=== PATIENT | female | born 1995 | race Caucasian/White ===

== ENCOUNTER 2018-01-30 06:18 | Emergency (ER) | payer OTHER ==
[2018-01-30] MEDS ORDERED: IBUP400T13 PO (06:25)
--- NOTE | 2018-01-30 06:30 | ER Report ---
History and Physical Time Seen By MD: 06:29 Hx. of Stated Complaint: upper right back pain. off and on. (KIRILL GARSIA MD) HPI/ROS CHIEF COMPLAINT: right flank and abdominal pain HISTORY OF PRESENT ILLNESS: This is a 22 year old female. She is having pain in right flank area and right upper abdomen. This happens intermittently for months now. It usually lasts a few hours when it comes on. She cannot really describe the quality of the pain. She feels in in her right flank area and around into the right upper quadrant. Sitting up helps and laying down tends to make it worse. Nothing else changes it. It does not change with eating, deep breaths, exertions, bowel movements or urination. She generally does not have vomiting, perhaps a little nausea, but not consistently. She has no diarrhea, constipation, blood or melena. No dysuria, frequency, or hematuria. Her next period will be due in about a week, normal menses last month. She has not been able to identify any type of pattern that causes the pain. She has no medical problems. She did just have a cold, but was mild, and this is not consistent with this pain. Last episode was 2 days ago, and several weeks prior to that. REVIEW OF SYSTEMS: Constitutional: No fever or chills. Eyes: No vision changes. ENT: As above. Cardiovascular: No chest pain. No palpitations. Respiratory: No cough. No shortness of breath. Gastrointestinal: As above. Genitourinary: As above. Musculoskeletal: No extremity pain. Skin: No rashes. Neurological: No weakness. No headache. (KIRILL GARSIA MD) Allergies: Coded Allergies: No Known Drug Allergies (Unverified , 01/30/18) Home Meds Active Scripts Ondansetron Hcl (ZOFRAN) 4 Mg Tablet, 4 MG PO Q8H Y for NAUSEA, #15 TAB 0 Refills Prov:RINA CARBONE MD 01/30/18 Dicyclomine Hcl (DICYCLOMINE HCL) 20 Mg Tablet, 20 MG PO QID for PAIN, #30 TAB 0 Refills Prov:RINA CARBONE MD 01/30/18 Reported Medications Ibuprofen (IBUPROFEN) 400 Mg Tablet, 1 TAB PO Q6H, TAB 01/30/18 Reviewed Nurses Notes: Yes (KIRILL GARSIA MD) Hx Substance Use Disorder: No Hx Alcohol Use: No ([facility],KIRILL Burden MD) Constitutional Vital Sign - Last 24 Hours 01/30/18 01/30/18 01/30/18 01/30/18 06:20 06:21 06:30 06:33 Temp 98.4 Pulse 91 85 Resp 18 B/P (MAP) 150/97 (114) 150/97 132/97 (109) Pulse Ox 97 98 O2 Delivery Room Air 01/30/18 01/30/18 01/30/18 01/30/18 06:45 06:48 07:00 07:03 Pulse 89 86 B/P (MAP) 125/96 (106) 121/86 (98) Pulse Ox 99 96 01/30/18 01/30/18 01/30/18 01/30/18 07:08 07:30 07:38 07:45 Pulse 84 83 B/P (MAP) 117/79 (92) 115/67 (83) Pulse Ox 94 98 01/30/18 07:53 Pulse 86 Pulse Ox 98 Intake and Output 01/30/18 01/30/18 01/31/18 15:00 23:00 07:00 Intake Total 1000 ml Balance 1000 ml (RINA CARBONE MD) Physical Exam General Appearance: The patient is alert. No acute distress. Non-toxic in appearance. Eyes: Pupils are equal, round. No pallor, injection or icterus. ENT: Mucous membranes are moist. Normal oral mucosa. Posterior oropharynx is normal. Normal tympanic membranes and canals. Neck: Supple and non tender. No lymphadenopathy. Respiratory: Breathing easily and unlabored. Lungs are clear to auscultation. Cardiovascular: Regular rate and rhythm. No murmurs, gallops or rubs. Normal capillary refill. Gastrointestinal: Abdomen is soft, nontender to palpation. Nondistended. No rebound or guarding. No masses or organomegaly. Normal active bowel sounds. No costovertebral angle tenderness with percussion. Neurological: Alert and oriented x3. Skin: Warm and dry. No rashes. Musculoskeletal: No pain with palpation of the ribs and low back. Full range of motion. No tenderness in palpation of the thoracic and lumbar spine. DIFFERENTIAL DIAGNOSIS: After history and physical exam, differential diagnosis was considered for flank pain including but not limited to musculoskeletal causes, kidney stone, pyelonephritis, shingles, and intra-abdominal causes such as diverticulitis, cholecystitis or lithiasis, and appendicitis. (KIRILL GARSIA MD) Medical Decision Making Data Points Result Diagram: 01/30/18 0647 01/30/18 0647 Laboratory Hematology Test 01/30/18 06:47 01/30/18 07:00 Red Blood Count 6.42 M/uL (4.17-5.56) Mean Corpuscular Volume 76.4 fL (80.0-96.0) Mean Corpuscular Hemoglobin 25.5 pg (26.0-33.0) Mean Corpuscular Hemoglobin Concent 33.3 g/dL (32.0-36.0) Red Cell Distribution Width 13.0 % (11.5-14.5) Mean Platelet Volume 8.8 fL (7.2-11.1) Neutrophils (%) (Auto) 79.1 % (39.4-72.5) Lymphocytes (%) (Auto) 13.9 % (17.6-49.6) Monocytes (%) (Auto) 5.8 % (4.1-12.4) Eosinophils (%) (Auto) 0.9 % (0.4-6.7) Basophils (%) (Auto) 0.3 % (0.3-1.4) Nucleated RBC Relative Count (auto) 0.0 /100WBC Neutrophils # (Auto) 8.3 K/uL (2.0-7.4) Lymphocytes # (Auto) 1.5 K/uL (1.3-3.6) Monocytes # (Auto) 0.6 K/uL (0.3-1.0) Eosinophils # (Auto) 0.1 K/uL (0.0-0.5) Basophils # (Auto) 0.0 K/uL (0.0-0.1) Nucleated RBC Absolute Count (auto) 0.00 K/uL Erythrocyte Sedimentation Rate 1 mm/HOUR (0-20) Sodium Level 141 mmol/L (137-145) Potassium Level 4.1 mmol/L (3.5-5.0) Chloride Level 101 mmol/L (98-107) Carbon Dioxide Level 28 mmol/L (22-31) Blood Urea Nitrogen 13 mg/dl (7-18) Creatinine 0.90 mg/dl (0.52-1.04) Glomerular Filtration Rate Calc > 60.0 Random Glucose 103 mg/dl (75-110) Calcium Level 9.5 mg/dl (8.4-10.2) Total Bilirubin 0.2 mg/dl (0.2-1.3) Aspartate Amino Transf (AST/SGOT) 20 U/L (0-35) Alanine Aminotransferase (ALT/SGPT) 30 U/L (0-56) Alkaline Phosphatase 67 U/L (0-126) C-Reactive Protein 0.6 mg/dl (<1.0) Total Protein 7.5 gm/dl (6.3-8.2) Albumin 4.1 g/dl (3.5-5.0) Amylase Level 86 U/L (0-110) Lipase 66 U/L (23-300) Human Chorionic Gonadotropin, Qual Negative (NEGATIVE) Urine Color Yellow Urine Clarity Cloudy Urine pH 7.0 pH (4.8-9.5) Urine Specific [place] 1.017 Urine Protein Negative mg/dL (NEGATIVE) Urine Glucose (UA) Negative mg/dL (NEGATIVE) Urine Ketones Negative mg/dL (NEGATIVE) Urine Blood Negative (NEGATIVE) Urine Nitrite Negative (NEGATIVE) Urine Bilirubin Negative (NEGATIVE) Urine Urobilinogen Negative mg/dL (0.2-1.9) Urine Leukocyte Esterase Trace (NEGATIVE) Urine RBC None /HPF (0-2/HPF) Urine WBC None /HPF (0-5/HPF) Urine Squamous Epithelial Cells Many /LPF (</=FEW) Urine Amorphous Crystals Few /HPF Urine Bacteria Few /HPF (NONE-FEW) Urine Mucus Few /HPF (NONE-FEW) Chemistry Test 01/30/18 06:47 01/30/18 07:00 White Blood Count 10.5 k/uL (4.5-11.0) Red Blood Count 6.42 M/uL (4.17-5.56) Hemoglobin 16.3 g/dL (12.0-16.0) Hematocrit 49.0 % (34.0-47.0) Mean Corpuscular Volume 76.4 fL (80.0-96.0) Mean Corpuscular Hemoglobin 25.5 pg (26.0-33.0) Mean Corpuscular Hemoglobin Concent 33.3 g/dL (32.0-36.0) Red Cell Distribution Width 13.0 % (11.5-14.5) Platelet Count 184 K/uL (150-450) Mean Platelet Volume 8.8 fL (7.2-11.1) Neutrophils (%) (Auto) 79.1 % (39.4-72.5) Lymphocytes (%) (Auto) 13.9 % (17.6-49.6) Monocytes (%) (Auto) 5.8 % (4.1-12.4) Eosinophils (%) (Auto) 0.9 % (0.4-6.7) Basophils (%) (Auto) 0.3 % (0.3-1.4) Nucleated RBC Relative Count (auto) 0.0 /100WBC Neutrophils # (Auto) 8.3 K/uL (2.0-7.4) Lymphocytes # (Auto) 1.5 K/uL (1.3-3.6) Monocytes # (Auto) 0.6 K/uL (0.3-1.0) Eosinophils # (Auto) 0.1 K/uL (0.0-0.5) Basophils # (Auto) 0.0 K/uL (0.0-0.1) Nucleated RBC Absolute Count (auto) 0.00 K/uL Erythrocyte Sedimentation Rate 1 mm/HOUR (0-20) Glomerular Filtration Rate Calc > 60.0 Calcium Level 9.5 mg/dl (8.4-10.2) Total Bilirubin 0.2 mg/dl (0.2-1.3) Aspartate Amino Transf (AST/SGOT) 20 U/L (0-35) Alanine Aminotransferase (ALT/SGPT) 30 U/L (0-56) Alkaline Phosphatase 67 U/L (0-126) C-Reactive Protein 0.6 mg/dl (<1.0) Total Protein 7.5 gm/dl (6.3-8.2) Albumin 4.1 g/dl (3.5-5.0) Amylase Level 86 U/L (0-110) Lipase 66 U/L (23-300) Human Chorionic Gonadotropin, Qual Negative (NEGATIVE) Urine Color Yellow Urine Clarity Cloudy Urine pH 7.0 pH (4.8-9.5) Urine Specific [place] 1.017 Urine Protein Negative mg/dL (NEGATIVE) Urine Glucose (UA) Negative mg/dL (NEGATIVE) Urine Ketones Negative mg/dL (NEGATIVE) Urine Blood Negative (NEGATIVE) Urine Nitrite Negative (NEGATIVE) Urine Bilirubin Negative (NEGATIVE) Urine Urobilinogen Negative mg/dL (0.2-1.9) Urine Leukocyte Esterase Trace (NEGATIVE) Urine RBC None /HPF (0-2/HPF) Urine WBC None /HPF (0-5/HPF) Urine Squamous Epithelial Cells Many /LPF (</=FEW) Urine Amorphous Crystals Few /HPF Urine Bacteria Few /HPF (NONE-FEW) Urine Mucus Few /HPF (NONE-FEW) Urinalysis Test 01/30/18 07:00 Urine Color Yellow Urine Clarity Cloudy Urine pH 7.0 pH (4.8-9.5) Urine Specific [place] 1.017 Urine Protein Negative mg/dL (NEGATIVE) Urine Glucose (UA) Negative mg/dL (NEGATIVE) Urine Ketones Negative mg/dL (NEGATIVE) Urine Blood Negative (NEGATIVE) Urine Nitrite Negative (NEGATIVE) Urine Bilirubin Negative (NEGATIVE) Urine Urobilinogen Negative mg/dL (0.2-1.9) Urine Leukocyte Esterase Trace (NEGATIVE) Urine RBC None /HPF (0-2/HPF) Urine WBC None /HPF (0-5/HPF) Urine Squamous Epithelial Cells Many /LPF (</=FEW) Urine Amorphous Crystals Few /HPF Urine Bacteria Few /HPF (NONE-FEW) Urine Mucus Few /HPF (NONE-FEW) (RINA CARBONE MD) EKG/Imaging Imaging [place] [facility] [place]IENT NAME: Meghan Lemos : 1995 MR: [id number] V: [id number] EXAM DATE: ORDERING PHYSICIAN: RINA CARBONE TECHNOLOGIST: Location: [facility] Patient: Meghan Lemos : 1995 Visit/Account:[id number] Date of Sevice: 01/30/2018 GALLBLADDER HISTORY: ruq pain COMPARISON: None. FINDINGS: Gallbladder: There are mobile shadowing stones seen within the gallbladder. Most of the stones are seen in the gallbladder neck. There is a negative Murillo sign by technologist notation. This no evidence of gallbladder wall thickening. Liver: Negative. Common duct: Normal, 1.7 mm diameter. Pancreas: Partially obscured by bowel, visualized aspects unremarkable. Right kidney: Appears unremarkable as imaged measuring 9.7 cm in length Upper abdominal aorta and IVC: Patent. Ascites: None visualized. IMPRESSION: Cholelithiasis although no evidence of gallbladder wall thickening, biliary ductal dilatation or positive Murillo sign Report Dictated By: Donna Villasenor MD at 01/30/2018 8:46 AM Report E-Signed By: Donna Villasenor MD at 01/30/2018 8:48 AM WSN:[id number] [place] [facility] [place]IENT NAME: Meghan Lemos : 1995 MR: [id number] V: [id number] EXAM DATE: [id number] ORDERING PHYSICIAN: KIRILL GARSIA TECHNOLOGIST: Location: [facility] Patient: Meghan Lemos : 1995 Visit/Account:[id number] Date of Sevice: 01/30/2018 OBSTRUCTION SERIES: Indication: Upper abdominal pain and right flank pain. Technique: Supine and erect views of the abdomen and a frontal view of the chest were obtained. Comparison: None. Findings: The intestinal gas pattern is unremarkable. There is no evidence of obstruction, dilatation, or free air. No suspicious calcifications are identified. The skeletal and soft tissue structures appear unremarkable. The chest film demonstrates well-expanded and clear lungs. There is no evidence of parenchymal or pleural abnormality. The heart and mediastinal contours are within normal limits. IMPRESSION: No evidence of obstruction or other acute process. Report Dictated By: Zeke Manuel MD at 01/30/2018 7:41 AM Report E-Signed By: Zeke Manuel MD at 01/30/2018 7:43 AM WSN:[id number] (RINA CARBONE MD) ED Course/Re-evaluation ED Course 01/30/2018 9:02:56 am right upper quadrant ultrasound positive for gallstones without evidence of cholecystitis. Patient's symptoms sound very much like biliary colic in that they're episodic usually worse at nighttime she does get radiation of pain to the right shoulder. We'll give follow-up instructions to follow up with general surgery will treat with antispasmodic and antinausea medications in the interim. Decision to Disposition Date: Jan 30, 2018 Decision to Disposition Time: 09:03 (RINA CARBONE MD) Depart Departure Latest Vital Signs Vital Signs Date Time Temp Pulse Resp B/P (MAP) Pulse Ox O2 Delivery O2 Flow Rate FiO2 01/30/18 07:53 86 98 01/30/18 07:45 115/67 (83) 01/30/18 06:21 98.4 18 Room Air (RINA CARBONE MD) Impression: Primary Impression: Biliary colic Condition: Improved Disposition: HOME OR SELF-CARE Referrals: HERBERT URIAS MD schedule follow up for further evaluation of your gall stone New Scripts Ondansetron Hcl (ZOFRAN) 4 Mg Tablet 4 MG PO Q8H Y for NAUSEA, #15 TAB 0 Refills Prov: RINA CARBONE MD 01/30/18 Dicyclomine Hcl (DICYCLOMINE HCL) 20 Mg Tablet 20 MG PO QID for PAIN, #30 TAB 0 Refills Prov: RINA CARBONE MD 01/30/18 Patient Instructions: Biliary Atresia (GEN) KIRILL GARSIA MD Jan 30, 2018 06:30 RINA CARBONE MD Jan 30, 2018 08:41
[2018-01-30] MEDS ORDERED: NS(*) 0.9% 1000 ML BAG 1,000 ML IV ONE (06:40)
[2018-01-30] MEDS ORDERED: MORPHINE 2 MG/ML SYR IVP ONE (06:40)
[2018-01-30] MEDS ORDERED: ONDANSETRON 4 MG/2 ML VIAL IVP ONE (06:40)
[2018-01-30 06:59] LABS: PLATELET COUNT, AUTOMATED 184 K/uL (150-450)
--- NOTE | 2018-01-30 07:47 | RADIOLOGY IMAGING REPORT ---
FACILITY: [facility] - [place] PATIENT NAME: Meghan Lemos : 1995 MR: [id number] V: [id number] EXAM DATE: ORDERING PHYSICIAN: KIRILL GARSIA TECHNOLOGIST: Location: [facility] Patient: Meghan Lemos : 1995 Visit/Account:[id number] Date of Sevice: 01/30/2018 OBSTRUCTION SERIES: Indication: Upper abdominal pain and right flank pain. Technique: Supine and erect views of the abdomen and a frontal view of the chest were obtained. Comparison: None. Findings: The intestinal gas pattern is unremarkable. There is no evidence of obstruction, dilatation , or free air. No suspicious calcifications are identified. The skeletal and soft tissue structures a ppear unremarkable. The chest film demonstrates well-expanded and clear lungs. There is no evidence of parenchymal or ple ural abnormality. The heart and mediastinal contours are within normal limits. IMPRESSION: No evidence of obstruction or other acute process. Report Dictated By: Zeke Manuel MD at 01/30/2018 7:41 AM Report E-Signed By: Zeke Manuel MD at 01/30/2018 7:43 AM WSN:[id number]
--- NOTE | 2018-01-30 08:51 | RADIOLOGY IMAGING REPORT ---
FACILITY: [facility] - [place] PATIENT NAME: Meghan Lemos : 1995 MR: [id number] V: [id number] EXAM DATE: ORDERING PHYSICIAN: RINA CARBONE TECHNOLOGIST: Location: [facility] - [place] Patient: Meghan Lemos : 1995 Visit/Account:[id number] Date of Sevice: 01/30/2018 GALLBLADDER HISTORY: ruq pain COMPARISON: None. FINDINGS: Gallbladder: There are mobile shadowing stones seen within the gallbladder. Most of the stones are s een in the gallbladder neck. There is a negative Murillo sign by technologist notation. This no evid ence of gallbladder wall thickening. Liver: Negative. Common duct: Normal, 1.7 mm diameter. Pancreas: Partially obscured by bowel, visualized aspects unremarkable. Right kidney: Appears unremarkable as imaged measuring 9.7 cm in length Upper abdominal aorta and IVC: Patent. Ascites: None visualized. IMPRESSION: Cholelithiasis although no evidence of gallbladder wall thickening, biliary ductal dilatation or posi tive Murillo sign Report Dictated By: Donna Villasenor MD at 01/30/2018 8:46 AM Report E-Signed By: Donna Villasenor MD at 01/30/2018 8:48 AM WSN:[email or web address]
[2018-01-30] MEDS ORDERED: KETOROLAC 15 MG/ML VIAL IVP ONE (08:55)
[2018-01-30 09:00] VITALS: BP 109/65
[2018-01-30] MEDS ORDERED: ONDA4TAB97 PO (09:05)
[2018-01-30] MEDS ORDERED: DICY20TA70 PO (09:05)
== END 2018-01-30 09:06 | disposition home or self-care (01) ==
LOC: ER 07:23
DX: K80.80 Other cholelithiasis without obstruction (principal)
CPT/HCPCS: 74022; 76705; 81001; 82150; 83690; 84703; 85025; 85651; 86140; 96361; 96374; 96375; 99284; J1885; J2270; J2405; J7030; 82040; 82247; 82310; 82374; 82435; 82565; 82947; 84075; 84132; 84155; 84295; 84450; 84460; 84520